=== PATIENT | female | born 1970 | race Caucasian/White ===

== ENCOUNTER 2021-01-09 04:27 | Emergency (ER) | payer OTHER, MEDICAID, SELFPAY ==
[2021-01-09 04:30] VITALS: BP 155/86; PULSE 100; RESP 18; TEMP 36.6; O2SAT 98
--- NOTE | 2021-01-09 04:40 | ED_ITS ---
HPI - General Adult General Chief complaint: Skin/Abscess/Foreign Body Stated complaint: abscess or bite on left shoulder draining Time Seen by Provider: 01/09/21 04:37 Source: patient Mode of arrival: Ambulatory History of Present Illness HPI narrative: Patient is a 50-year-old female here for evaluation of either a abscess or a insect bite to her left shoulder. States she started noticing the redness several days ago but yesterday it started to drain on its own. It has only been a very small amount. Has a lot of discomfort with laying on her left side. No fevers but generally does not feel very good. She did inject herself with heroin at this site. Has had abscesses in the past that have needed drained. Related Data Previous Rx's Medication Instructions Recorded doxycycline hyclate 100 mg tablet 100 mg PO BID 10 Days #20 tab 01/09/21 Review of Systems Constitutional Constitutional: Reports system reviewed and no additional complaints, except as documented Musculoskeletal Musculoskeletal: Reports system reviewed and no additional complaints, except as documented and Reports as per HPI Integumentary/Breasts Skin/Breast: Reports system reviewed and no additional complaints, except as documented and Reports as per HPI Hematologic/Lymphatic On Anticoagulants: No Patient History Medical History IV drug abuse Social History Smoking Status: Current every day smoker Exam Initial Vital Signs Initial Vital Signs: Vital Signs Temperature 98 F 01/09/21 04:30 Pulse Rate 100 H 01/09/21 04:30 Respiratory Rate 18 01/09/21 04:30 Blood Pressure 155/86 H 01/09/21 04:30 Pulse Oximetry 98 01/09/21 04:30 Const General: cooperative and comfortable HENMT Head: normal to inspection and normocephalic Resp Effort & Inspection: normal respiratory effort Cardio Rate: regular rate Pulses: radial pulses present on the left Skin Other: Large area of redness located on the lateral aspect of the shoulder over the deltoid. There is no drainage from the area. Neuro General: patient alert, patient awake and moves all extremities Extrem General: normal to inspection and capillary refill normal Other: Full range of motion of the left shoulder however does have discomfort over the deltoid laterally. Procedures Abscess I/D I&D #1: Site: other (Left deltoid) Side (if applicable): left Local Anesthetic: lidocaine 1% and with bicarb Amount of anesthesia used (mL): 6 Technique: incised with #11 blade Irrigation: No Packing used?: none Complications: other (None) Course Orders Ordered: Discontinued Medications Lidocaine/Sodium Bicarbonate (Lido 1%/Sod Bicarb 8.4% (10ml) 10 Ml Syringe) 10 ml INJ NOW ONE Stop: 01/09/21 04:41 Vital Signs Vital signs: Vital Signs - 8 hr 01/09/21 04:30 Temperature 98 F Pulse Rate 100 H Respiratory Rate 18 Blood Pressure 155/86 H Pulse Oximetry 98 Medical Decision Making MDM Narrative Medical decision making narrative: Patient is nontoxic appearing. She does have a large area of cellulitis and induration to the deltoid on the left shoulder. Bedside ultrasound does show an abscess. Incision and drainage was performed as described above. Because of the area a cellulitis we will start her on antibiotics. A prescription was sent to the pharmacy of her choice. She was given return precautions and follow-up instructions she expressed understanding and agreement Discharge Plan Departure Patient Disposition: Home Clinical Impression: Cellulitis, Abscess of skin or subcutaneous tissue Instructions: DI for Cellulitis -- Adult, DI for Skin Abscess Activity Restrictions/Additional Instructions: Expect some drainage from the incision that we made in your left arm. Just cover it with the bandage in change it as needed. You can shower like normal and use soap and water like normal. Contact your primary doctor for follow-up. Please start taking the antibiotics as directed. They were electronically transmitted to [email or web address] here in [place]. Return to the emergency department for any new or worsening symptoms Prescriptions: New doxycycline hyclate 100 mg tablet 100 mg PO BID 10 Days Qty: 20 RF: 0
== END 2021-01-09 05:10 | disposition home or self-care (01) ==
PROVIDERS: Emergency Provider Emergency Medicine
DX: L03.114 Cellulitis of left upper limb (principal); L02.414 Cutaneous abscess of left upper limb
CPT/HCPCS: 10060; 99281; 99283

== ENCOUNTER 2021-04-18 22:19 | Emergency (ER) | payer OTHER, MEDICAID, SELFPAY ==
[2021-04-18 22:34] VITALS: BP 166/78; PULSE 89; RESP 17; TEMP 37.1; O2SAT 97; BMI 40.3
--- NOTE | 2021-04-18 22:40 | PC.NURSE ---
Exposure to COVID
[2021-04-18 22:52] LABS: COVID19 -Nasal RAPID Negative (Negative)
--- NOTE | 2021-04-18 23:00 | ED.GENADULT ---
HPI - General Adult General Chief complaint: Upper Respiratory Symptoms Stated complaint: headache/low back pain today Time Seen by Provider: 04/18/21 22:30 Source: patient Mode of arrival: Ambulatory History of Present Illness HPI narrative: Patient is a 51-year-old male here with her grandson both requesting test for COVID. Patient states she had a mild headache and some lower back pain today otherwise no other symptoms. Patient is vaccinated against COVID. The patient's other grandson tested positive for COVID earlier today. Related Data Home Medications Medication Instructions Recorded Confirmed levothyroxine 200 mcg tablet 200 mcg PO DAILY 04/18/21 04/18/21 Allergies Allergy/AdvReac Type Severity Reaction Status Date / Time No Known Drug Allergies Allergy Verified 04/18/21 22:36 Review of Systems Constitutional Constitutional: Reports system reviewed and no additional complaints, except as documented Cardiovascular Cardiovascular: Reports system reviewed and no additional complaints, except as documented Respiratory Respiratory: Reports system reviewed and no additional complaints, except as documented Gastrointestinal Gastrointestinal: Reports system reviewed and no additional complaints, except as documented Integumentary/Breasts Skin/Breast: Reports system reviewed and no additional complaints, except as documented Hematologic/Lymphatic On Anticoagulants: No Patient History Medical History IV drug abuse Social History Smoking Status: Current every day smoker Smoking Status: Current every day smoker alcohol intake frequency: other Substance Use Type: does not use Exam Initial Vital Signs Initial Vital Signs: Vital Signs Temperature 98.7 F 04/18/21 22:34 Pulse Rate 89 04/18/21 22:34 Respiratory Rate 17 04/18/21 22:34 Blood Pressure 166/78 H 04/18/21 22:34 Pulse Oximetry 97 04/18/21 22:34 HENVA Head: normal to inspection and normocephalic Resp Effort & Inspection: normal respiratory effort Cardio Rate: regular rate Skin General: no rashes or lesions noted Neuro General: patient alert and patient awake Extrem General: normal to inspection Psych Appearance: grossly normal and well kempt Course Orders Ordered: ED Orders 04/18/21 22:30 COVID19 -Nasal swab/Pre-Proc Stat Vital Signs Vital signs: Vital Signs - 8 hr 04/18/21 22:34 Temperature 98.7 F Pulse Rate 89 Respiratory Rate 17 Blood Pressure 166/78 H Pulse Oximetry 97 Medical Decision Making Lab Data Labs: Lab Results 04/18/21 Range/Units 22:30 SARS-CoV-2 (PCR) Negative (Negative) MDM Narrative Medical decision making narrative: Patient is not hypoxic. Not tachypneic. He is COVID negative. Has been immunized against COVID. No further workup needed emergency department. She was given return precautions and follow-up instructions. She expressed understanding and agreement. Discharge Plan Departure Patient Disposition: Home Clinical Impression: Headache, Encounter for laboratory testing for COVID-19 virus Instructions: Can COVID-19 be prevented? Activity Restrictions/Additional Instructions: Please follow current CDC guidelines with regard to quarantine after having an exposure. Contact your primary doctor for a follow-up. Return to the emergency department for any new or worsening symptoms. Prescriptions: No Action levothyroxine 200 mcg tablet 200 mcg PO DAILY 0RF Label Comments: take 1 tablet by mouth once daily Referrals: Sachin Chamberlain MD [Primary Care Provider] -
== END 2021-04-18 23:09 | disposition home or self-care (01) ==
PROVIDERS: Emergency Provider Emergency Medicine; PCP Family Medicine
DX: R51.9 Headache, unspecified (principal); F17.200 Nicotine dependence, unspecified, uncomplicated; Z20.822 Contact with and (suspected) exposure to COVID-19
CPT/HCPCS: 87635; 99281; C9803